=== PATIENT | male | born 1950 | race Caucasian/White ===

== ENCOUNTER → 2018-09-14 | Outpatient (CLI) | payer OTHER ==
[~2018-09-14] MED LIST: ASPI-555 PO; METO-391 PO; PRAS10TA6 PO; PRAV40TA3 PO
== END | disposition home or self-care (01) ==
LOC: RAH 08:49
PROVIDERS: ATTEND Internal Medicine Cardiovascular Disease
DX: I25.10 Atherosclerotic heart disease of native coronary artery without angina pectoris (principal)
CPT/HCPCS: 78452; 93017; A9500 ×2; 93015

== ENCOUNTER 2019-08-18 05:59 | Observation (INO) | payer OTHER ==
[2019-08-16 12:00] VITALS: BP 135/74
[2019-08-16 12:33] LABS: CREATININE 1.2 mg/dL (0.5-1.5); POTASSIUM 5.2 mmol/L (3.5-5.1)
[2019-08-16 12:39] LABS: EOSINOPHILS % (AUTO) 4.6 % (0.0-8.0); LYMPHOCYTES % (AUTO) 24.2 % (21.0-51.0); MEAN CORPUSCULAR HEMOGLOBIN 30.3 pg (27.0-33.0); MEAN CORPUSCULAR HGB CONC 33.7 g/dL (32.0-36.0); MONOCYTES % (AUTO) 7.6 % (3.0-13.0); NEUTROPHILS % (AUTO) 62.1 % (40.0-77.0); PLATELET COUNT (AUTO) 195 K/uL (130-400); RED BLOOD CELL COUNT(AUTO) 5.11 MIL/uL (4.50-6.20); RED CELL DISTRIBUTION WIDTH 12.1 % (11.0-15.5); WHITE BLOOD COUNT (AUTO) 8.8 K/uL (4.8-10.8)
[~2019-08-18] VITALS: Ht 162.6 cm; Wt 102.2 kg
[2019-08-18] VITALS (24 sets, daily range): BP systolic 115–145; BP diastolic 61–79
[~2019-08-18 05:59] MED LIST changes: +ASCO10007 PO; +BACL10TA PO; +CETI-109 PO; +EZET10TA13 PO; +GABA-529 PO; -METO-391 PO; +METO-409 PO; +POTA99TA21 PO; -PRAS10TA6 PO; -PRAV40TA3 PO; +ROSU10TA22 PO; +VITA1TAB22 PO; +ZINC50TA64 PO; +vitamin d PO
[2019-08-18] MEDS: CLINDAMYCIN 900 MG/D5% WATER 50 ML IV SCH ×5 (06:00→20:58)
[2019-08-18] MEDS ORDERED: BUPIVACAINE/EPI/PF 0.25% 30ML VIAL IJ ONE (06:42)
[2019-08-18] MEDS ORDERED: DURAMORPH PF1 MG/ML 10ML AMP IV ONE (06:42)
[2019-08-18] MEDS ORDERED: CEFAZOLIN SODIUM 1 GM VIAL ONE (06:42)
[2019-08-18] MEDS ORDERED: THROMBIN-JMI 20000 UNIT KIT TP ONE (06:42)
[2019-08-18] MEDS ORDERED: LACTATED RINGERS 1000ML 1,000 ML IV ONE ×2 (06:56→11:21)
--- NOTE | 2019-08-18 07:08 | NUR ---
ABNORMAL LAB: YASEMIN DAVID CRNA NOTIFIED OF POTASSIUM RESULT OF 5.2, NO ORDERS GIVEN. OK TO PROCEED WITH SURGERY.
[2019-08-18] MEDS ORDERED: MIDAZOLAM HCL 1 MG/ML 2ML VIAL ONE (07:15)
[2019-08-18] MEDS ORDERED: LIDOCAINE PF 2% 5ML ABBOJECT ONE (07:15)
[2019-08-18] MEDS ORDERED: ROCURONIUM 10MG/1ML SYR 10 MG/ML ML ONE ×2 (07:15→08:12)
[2019-08-18] MEDS ORDERED: PROPOFOL 10 MG/ML 20ML VIAL IV ONE (07:15)
[2019-08-18] MEDS ORDERED: NEOSTIGMINE 5MG/5ML SYR IV ONE (07:16)
[2019-08-18] MEDS ORDERED: GLYCOPYRROLATE 1 MG/5 ML SYRINGE ONE (07:16)
[2019-08-18] MEDS ORDERED: FENTANYL CITRATE PF 50 MCG/1 ML 5ML AMP IV ONE (07:16)
[2019-08-18] MEDS ORDERED: DEXAMETHASONE SOD PHOSPHATE 10MG/ML 1ML VIAL ONE (07:16)
[2019-08-18] MEDS ORDERED: ONDANSETRON HCL 4 MG/2 ML VIAL ONE (07:17)
[2019-08-18] MEDS ORDERED: EPHEDRINE SULFATE 50 MG/ML AMPULE ONE ×2 (07:43→07:53)
[2019-08-18] MEDS ORDERED: HETASTARCH IN 0.9 % NACL 500 ML IV ONE (08:26)
[2019-08-18] MEDS ORDERED: PHENYLEPHRINE HCL 10 MG/ML 1ML VIAL IV ONE (09:39)
[2019-08-18] MEDS ORDERED: PROMETHAZINE HCL 25 MG/ML 1ML AMPULE IM PRN (11:30)
[2019-08-18] MEDS ORDERED: HYDROCODONE/ACETAMINOPHEN 5/325 MG TAB PO PRN (11:30)
[2019-08-18] MEDS ORDERED: MORPHINE SULFATE 2 MG/ML 1ML SYG IVP PRN (11:30)
[2019-08-18] MEDS ORDERED: SODIUM CHLORIDE 0.9% 10 ML VIAL IVP PRN (11:30)
--- NOTE | 2019-08-18 12:19 | NUR ---
POST SURGERY PATIENT RECEIVED FROM PACU VIA HOSPITAL BED IN STABLE CONDITION. IV IS PATENT AND INFUSING IV FLUIDS WITH NO REDNESS OR SWELLING NOTED TO SITE. DRESSING TO LOWER BACK DRY AND INTACT. JA DRAIN IS SECURED TO LOWER BACK. WILL COMPRESS IN APPROXIMATELY 3 HOURS. POST OP V/S HAVE BEEN INITIATED. HE HAS BEEN ORIENTED TO ROOM AND USE OF CALL LIGHT. BED IS IN LOWEST POSITION AND LOCKED. WILL CONTINUE TO MONITOR.
[2019-08-18] MEDS: LACTATED RINGERS 1000ML 1,000 ML IV SCH (12:39)
[2019-08-18] MEDS: CETIRIZINE HCL 5 MG TABLET PO SCH (12:40)
[2019-08-18] MEDS: DEXAMETHASONE SOD PHOSPHATE 4 MG/ML 1ML VIAL IVP SCH ×3 (12:40→22:30)
[2019-08-18] MEDS: VITAMIN B COMPLEX 1 CAPSULE PO SCH (12:40)
[2019-08-18] MEDS: ASCORBIC ACID 500 MG TAB PO SCH (12:40)
[2019-08-18] MEDS: GABAPENTIN 100 MG CAPSULE PO SCH ×2 (13:41→20:54)
[2019-08-18] MEDS: BACLOFEN 10 MG TABLET PO SCH ×2 (13:41→20:54)
[2019-08-18] MEDS ORDERED: ATORVASTATIN CALCIUM 20 MG TABLET PO SCH (21:00)
[2019-08-19] MEDS: LACTATED RINGERS 1000ML 1,000 ML IV SCH (00:45)
[2019-08-19 03:58] VITALS: BP 121/63
[2019-08-19] MEDS: DEXAMETHASONE SOD PHOSPHATE 4 MG/ML 1ML VIAL IVP SCH (05:36)
--- NOTE | 2019-08-19 07:30 | NUR ---
PATIENT DUE TO VOID PAIZ CATHETER REMOVED BY NIGHTSHIFT NURSE, PATIENT DUE TO VOID. ENCOURAGED PO INTAKE OF LIQUIDS AND INFORM NURSING STAFF WHEN HE HAS URINATED TO PROCEED WITH DISCHARGE.
[2019-08-19 08:17] VITALS: BP 118/61
[2019-08-19] MEDS ORDERED: EZETIMIBE 10 MG TAB PO SCH (09:00)
[2019-08-19] MEDS ORDERED: METOPROLOL SUCCINATE 50 MG TAB.SR.24H PO SCH (09:00)
[2019-08-19] MEDS ORDERED: ASPIRIN 81 MG EC TAB PO SCH (09:00)
--- NOTE | 2019-08-19 10:15 | NUR ---
PATIENT VOIDED PATIENT REPORTS ABILITY TO URINATE, WILL PROCEED WITH DISCHARGE.
[2019-08-19] MEDS: ASCORBIC ACID 500 MG TAB PO SCH (11:00)
[2019-08-19] MEDS: GABAPENTIN 100 MG CAPSULE PO SCH (11:01)
[2019-08-19] MEDS: BACLOFEN 10 MG TABLET PO SCH (11:01)
[2019-08-19] MEDS: CETIRIZINE HCL 5 MG TABLET PO SCH (11:01)
[2019-08-19] MEDS: VITAMIN B COMPLEX 1 CAPSULE PO SCH (11:01)
--- NOTE | 2019-08-19 11:46 | NUR ---
DISCHARGE INSTRUCTIONS PATIENT GIVEN DISCHARGE INSTRUCTIONS AND VERBALIZED UNDERSTANDING, REVIEWED CONTINUING HIS HOME MEDICATIONS ORDERED , NEW MEDICATION REVIEWED TORADOL 10MG PO EVERY 6 HOUR NEEDED FOR PAIN . PATIENT STATES HIS PAIN SCORE IS 2 OUT OF 10 AT THIS TIME. DRESSING CHANGED AND DRAIN REMOVED INCISION CLEANED WITH BETADINE AND COVERED GAUZE AND TAPED SECURED. SITE STABLE INTACT. INSTRUCTED ON FOLLOW-UP APPOINTMENT WITH DR WATKINS ON AT 0800 AND SIGNS AND SYMPTOM OFWATCH FOR AND REPORT TO DR WATKINS, PHONE NUMBER TO CLINIC ON INSTRUCTED FOR ANY PROBLEMS OR CONCERNS. PATIENT STABLE REMOVE AND INSTRUCTED TO BRING WITH HIM TO HIS FOLLOW-UP APPOINTMENT WITH DR WATKINS.
--- NOTE | 2019-08-19 12:16 | NUR ---
ADMITTED FOR SCHEDULED ELECTIVE SURGERY, NO TRIGGERS TO CASE MANAGEMENT NO CONCERNS BY PATIENT OR JOSHUA SHOEMAKER; WILL DEFER DETAILED CM ASSESSMENT A THIS TIME Addendum: 08/19/19 at 1221 by ALO RAHMAN RN CM Amended: Links added.
[2019-08-19] MEDS ORDERED: VITAMIN D PO SCH (12:25)
== END 2019-08-19 12:35 | disposition home or self-care (01) ==
LOC: DAH 05:59 → 3DH 06:00 → EDSTATUS 09:00
PROVIDERS: ADMIT Neurological Surgery; ATTEND Neurological Surgery
DX: M48.061 Spinal stenosis, lumbar region without neurogenic claudication (principal); I25.10 Atherosclerotic heart disease of native coronary artery without angina pectoris; I10 Essential (primary) hypertension; E78.5 Hyperlipidemia, unspecified; Z98.61 Coronary angioplasty status; Z79.82 Long term (current) use of aspirin; Z79.899 Other long term (current) drug therapy; Z88.0 Allergy status to penicillin
CPT/HCPCS: 36415; 63047; 63048; 72020; 80048; 85025; 96365; 96366; 96375; 96376 ×2; A4215; A4221; A4222; A4223; A4344; A4510; A4600; A4649 ×3; A4663; G0378 ×26; J0690; J1100 ×5; J2001; J2250; J2274; J2370; J2405; J2704; J2710; J3010; J3490 ×8; J7030; J7120 ×3